=== PATIENT | female | born 1985 | race Caucasian/White ===

== ENCOUNTER → 2018-01-03 08:22 | Outpatient (CLI) | payer BC, SELFPAY ==
[2018-01-11 08:47] LABS: HPV Reflexed? NOT INDICATED
== END ==
PROVIDERS: Family Provider Family Medicine; PCP Family Medicine; Visit Provider Obstetrics & Gynecology
DX: Z12.4 Encounter for screening for malignant neoplasm of cervix (principal)
CPT/HCPCS: 88175; G0145

== ENCOUNTER → 2018-07-01 16:22 | Outpatient (CLI) | payer BC, SELFPAY ==
[2015-04-15 10:16] VITALS: BMI 29.0
[2018-07-02 00:26] LABS: Chlamydia Trachomatis by PCR Negative (Negative); Neisserai gonorrhoeae by PCR Negative (Negative); Probe Check PASS; Sample Adequacy Control PASS; Specimen Processing Control PASS
== END ==
PROVIDERS: Visit Provider Obstetrics & Gynecology
DX: Z11.3 Encounter for screening for infections with a predominantly sexual mode of transmission (principal)
CPT/HCPCS: 87491; 87591

== ENCOUNTER → 2018-07-12 16:08 | Outpatient (CLI) | payer BC, SELFPAY ==
[2015-04-15 10:16] VITALS: BMI 29.0
[2018-07-12 18:16] LABS: Absolute Lymphocyte Count 1.58 X10^3/ul (0.83-4.51); Absolute Neutrophil Count 6.9 X10^3/uL (2.0-7.7); Basophil# 0.03 X10^3/uL; Basophil% 0.3 % (0-1); Eosinophils% 1.1 % (0-5); Hematocrit 39.1 % (37-47); Hemoglobin 12.9 g/dl (12.0-15.0); Lymphocyte # 1.58 X10^3/ul (4.0); Lymphocyte % 17.1 % (19-41); Mean Corpuscular Hgb 27.4 pg (27.0-32.0); Mean Platelet Vol. 10.5 fl (6.2-12.0); Monocyte% 6.5 % (0-10); Neutrophil # 6.91 X10^3/uL (2.7-7.7); Neutrophil % 74.9 % (47-70); POSITIVE COUNT NO; POSITIVE DIFFERENTIAL NO; POSITIVE MORPHOLOGY NO; Platelet Count 273 K/mm3 (150-450); RBC Distribution Width CV 13.6 % (11.6-14.6); RBC Distribution Width SD 41.2 fl (35.1-43.9); Red Blood Count 4.71 M/mm3 (4.2-5.4); White Blood Count 9.2 K/mm3 (4.4-11.0)
[2018-07-12 18:17] LABS: Color, Urine Yellow (Yellow); Glucose, Dipstick Normal (Normal); Ketone-Dipstick Negative (Negative); Leukocyte Esterase-Dipstick Negative /ul (Negative); Nitrite-Dipstick Negative (Negative); Occult Blood-Urine Negative /ul (Negative); Protein-Dipstick Negative (Negative); Urine Bilirubin Dipstick Negative (Negative); Urine Clarity Clear (Clear); Urine Urobilinogen Normal (Normal)
[2018-07-12 18:34] LABS: Thyroid Stim Hormone (TSH) 0.43 uIU/mL (0.358-3.74)
[2018-07-12 19:14] LABS: HIV - WCH Non-Reactive (Nonreactive); Rubella IgG 94.3 IU/mL
[2018-07-14 14:42] LABS: HEPATITIS B SURFACE AG Negative (Negative); Hep C Antibodies <0.1 s/co ratio (0.0-0.9)
[2018-07-15 03:31] LABS: Prenatal RPR NONREACTIVE (NONREACTIVE)
== END ==
PROVIDERS: Visit Provider Obstetrics & Gynecology
DX: Z34.81 Encounter for supervision of other normal pregnancy, first trimester (principal)
CPT/HCPCS: 36415; 81002; 84443; 85025; 86703; 86762; 86803; 87340

== ENCOUNTER → 2018-11-01 | Outpatient (CLI) | payer BC, SELFPAY ==
[2018-11-01 09:30] LABS: Hematocrit 36.8 % (37-47); Hemoglobin 12.2 g/dl (12.0-15.0); Mean Corp Hgb Conc 33.2 g/gl (32-36); Mean Corpuscular Hgb 28.2 pg (27.0-32.0); Mean Platelet Vol. 10.4 fl (6.2-12.0); Platelet Count 213 K/mm3 (150-450); RBC Distribution Width CV 14.3 % (11.6-14.6); RBC Distribution Width SD 44.6 fl (35.1-43.9); Red Blood Count 4.33 M/mm3 (4.2-5.4); Scan Indicated on CBC? Y/N NO; White Blood Count 8.5 K/mm3 (4.4-11.0)
[2018-11-01 11:32] LABS: Glucose Challenge Gest 1H 50g 104 mg/dL (70-140)
== END | disposition home or self-care (01) ==
LOC: WOBLAB 08:56
PROVIDERS: Visit Provider Obstetrics & Gynecology
DX: Z34.82 Encounter for supervision of other normal pregnancy, second trimester (principal)
CPT/HCPCS: 36415; 82950; 85027

== ENCOUNTER → 2018-12-26 | Outpatient (CLI) | payer BC, SELFPAY | END | disposition home or self-care (01) | PROVIDERS: Referring Provider Obstetrics & Gynecology; Visit Provider Obstetrics & Gynecology | DX: Z36.85 Encounter for antenatal screening for Streptococcus B (principal) | CPT/HCPCS: 87077; 87081 ==

== ENCOUNTER 2019-02-07 03:30 | Inpatient (IN) | payer BC, SELFPAY ==
[2019-02-07] MEDS: Lactated Ringers 500 ML 999 ML IV (04:05)
[2019-02-07 04:31] LABS: Hematocrit 39.8 % (37-47); Hemoglobin 13.6 g/dL (12.0-15.0); Mean Corp Hgb Conc 34.2 g/dL (32-36); Mean Corpuscular Hgb 28.8 pg (27.0-32.0); Mean Corpuscular Volume 84.3 fL (81-99); Mean Platelet Vol. 11.7 fl (6.2-12.0); Platelet Count 179 K/mm3 (150-450); RBC Distribution Width CV 13.6 % (11.6-14.6); RBC Distribution Width SD 42.1 fl (35.1-43.9); Red Blood Count 4.72 M/mm3 (4.2-5.4); White Blood Count 9.9 K/mm3 (4.4-11.0)
[2019-02-07 04:44] VITALS: BMI 29.5
[2019-02-07] MEDS: fentaNYL-bupivacaine (epidural) 100 ML BAG EPIDURAL ×2 (04:56→09:29)
[2019-02-07] MEDS: Lactated Ringers 1,000 ML 50 ML IV ×2 (05:09→10:27)
--- NOTE | 2019-02-07 07:03 | PCM.HPOB.BLA ---
History and Physical Date of Admission: 02/07/19 OB HISTORY AND PHYSICAL EXAMINATION History of this : 33 yo female Ab0 with EDC 01/29/2019 by 11 weeks 2 days Ultrasound, presents to Labor and Delivery at 41 2/7 wk on date of her scheduled induction for postdates, with cc of [facility]. care remarkable for 1.) H/O headaches 2.) Eczema, feet Pertinent Past Medical History: Negative Allergies: No Known Drug Allergies Medications: During - Finacea 15 % topical gel; Women's + DHA 28 mg-975 mcg- 200 mg combo pack [id number]-nwbpmggzzaivf-bufckmaj 50 mg-325 mg-40 mg tablet; magnesium 200 mg tablet; promethazine 25 mg tablet Review of Systems: Contractions Non-contributory PHYSICAL EXAMINATION General Appearence: 33 yo female now comfortable with epidural Vital Signs: AF, VSS Heart: RRR without rubs or gallops Lungs: CTA x 2 Breasts: deferred Abdomen: gravid Pelvis: adeqate Cervix: 5 cm , now 6-7 cm/80/-2 Presentation: cephalic Size: 9# 9 oz by sono 02/06/19 Movement: present Heart: 130-150s avg variability. ? occasional late, Accels to 170-180 Avg variability. UCs irregular q 4-6 + min Impression /Plan: Intrauterine . 41 2/7 wk spontaneous labor. Admitted. Epidural placed. EFW 9# 9 oz Oligo 02/06/19 History and Physical generated at time of exam. Se Holland MD 02/07/19 0711
--- NOTE | 2019-02-07 08:37 | PCM.PN.BLA ---
Progress Note LABOR PROGRESS NOTE Comfortable w/ epidural AVSS EFM reassuring, category I tracing Irregular UCs CX: 6/stretchy distensible. 90% / -2 A/P: 41 2/7 wk early labor. AROM Oligo LGA 9# 9 oz. Consider Pitocin augmentation.
[2019-02-07] MEDS: Oxytocin 30 units/NS 500 ml 30 UNITS/500 ML IV.SOLN 334 UNITS IV (12:08)
--- NOTE | 2019-02-07 12:32 | DCINST_ITS ---
Discharge Diet: No Restrictions Discharge Activity: May Shower, May Take a Tub Bath Return to work on:: 03/27/19 May resume sexual activity in: 4-6 weeks Additional Activity Instructions:: Nothing in the vagina for 4-6 weeks. You may return to work/school in 6 weeks. Additional Instructions: If you experience any of the following, contact your healthcare provider. * Bleeding that soaks a pad every hour for 2 hours * Fever 100.4 or higher * Unrelieved abdominal pain * Problems urinating (including inability to urinate or burning while urinating). * Visual changes * Severe headache * Flu-like symptoms * Pain or redness in one of both of your breasts * Pain, warmth, tenderness or swelling in your legs, especially the calf area * Frequent nausea and vomiting * Symptoms of depression or anxiety If you experience any of the following, call 911 or go to the nearest Emergency Room. * Chest pain * Problems breathing * Seizure activity * Partial or complete paralysis of a body part, slurred speech, weakness or drooping of the face, or a sudden inability to walk or hold your balance Allergies/Adverse Reactions: Allergies No Known Allergies Allergy (Verified 02/07/19 04:44) Medications to take at Discharge Vits [Prenatabs FA] 1 tablet PO DAILY 04/15/15 Please Follow Up With: Franca Holland MD - [phone] When: Call to make an appointment with your doctor in 6 weeks. Test Results: Test results from this visit will be discussed in further detail at your follow- up appointment, if applicable. Proposed Discharge Date: 02/08/19
--- NOTE | 2019-02-07 12:32 | PCM.DCVAG ---
Discharge Diet: No Restrictions Discharge Activity: May Shower, May Take a Tub Bath Return to work on:: 03/27/19 May resume sexual activity in: 4-6 weeks Additional Activity Instructions:: Nothing in the vagina for 4-6 weeks. You may return to work/school in 6 weeks. Additional Instructions: If you experience any of the following, contact your healthcare provider. Bleeding that soaks a pad every hour for 2 hours Fever 100.4 or higher Unrelieved abdominal pain Problems urinating (including inability to urinate or burning while urinating). Visual changes Severe headache Flu-like symptoms Pain or redness in one of both of your breasts Pain, warmth, tenderness or swelling in your legs, especially the calf area Frequent nausea and vomiting Symptoms of depression or anxiety If you experience any of the following, call 911 or go to the nearest Emergency Room. Chest pain Problems breathing Seizure activity Partial or complete paralysis of a body part, slurred speech, weakness or drooping of the face, or a sudden inability to walk or hold your balance Allergies/Adverse Reactions: Allergies No Known Allergies Allergy (Verified 02/07/19 04:44) Medications to take at Discharge Vits [Prenatabs FA] 1 tablet PO DAILY 04/15/15 Please Follow Up With: Franca Holland MD - [phone] When: Call to make an appointment with your doctor in 6 weeks. Test Results: Test results from this visit will be discussed in further detail at your follow-up appointment, if applicable. Proposed Discharge Date: 02/08/19
[2019-02-07] MEDS: Oxytocin 30 units/NS 500 ml 30 UNITS/500 ML IV.SOLN 167 UNITS IV (12:38)
--- NOTE | 2019-02-07 12:40 | OP.PCM_ITS ---
Vaginal Delivery Maternal Presentation: Active Labor 41 2/7 wk labor. (scheduled for induction, presented in labor) Oligohydramnios LGA 9# 9 oz EFW Amniotic Membrane Rupture Type: Artificial Amniotic Fluid Description: Clear Final FELICIA: 01/29/19 Final FELICIA Source: US <20 weeks Gestational age: 41 Weeks and 2 Days Date of Procedure: 02/07/19 Pre-Operative Diagnosis: vaginal delivery Post-Operative Diagnosis: same Type of Anesthesia: Epidural Description of Procedure: of a avery viable female over intact perineum. Rapid progress, epidural not fully effective due to rapid transition. Head delivered ANTHONY. OP and nares bulb suctioned on perineum. No nuchal cord, Shoulders delivery easily. to maternal abdomen with spont cry. Weight pending. Ap PP exam; no lacerations noted Placenta delivered by spont expulsion, expression 3 V cord, normal appearing, in tact with trailing membranes. Pt and tolerated delivery well. To recovery, stable condition Ray Sam counts correct times two. Presentation: Vertex, ANTHONY Placental Delivery Description: Spontaneous, Expressed Placenta Disposition: [facility] Cord Vessel Description: 3 Vessels Cord Entanglement: None Estimated Blood Loss: 150 Infant A gender: Female (1 minute): 8 (5 minute): 9 Episiotomy Description: None Laceration: None Medications given after delivery: IV Pitocin Complications: None
[2019-02-07 17:00] VITALS: BP 112/67; PULSE 87; RESP 16; TEMP 36.4
[2019-02-07 19:35] VITALS: BP 129/74; PULSE 88; RESP 16; TEMP 36.6
[2019-02-07 23:52] VITALS: BP 115/65; PULSE 82; RESP 16; TEMP 36.4; O2SAT 97
[2019-02-08 04:20] VITALS: BP 106/65; PULSE 72; RESP 14; TEMP 36.3; O2SAT 97
--- NOTE | 2019-02-08 08:06 | PCM.PN.OB ---
Subjective: PPD#1 Bresat feeding well. Some inc cramping wtih nursing. No concerns voiced Baby wt 9# 7 oz. Objective: Sitting up in bed nursing baby - Physical Exam General: Alert, Oriented x3, Cooperative, No apparent distress HEENT: Atraumatic, PERRLA, EOMI Neck: Supple Psych/Mental Status: Normal Affect Vital Signs Temp Pulse Resp BP Pulse Ox 97.3 F L 72 14 106/65 97 02/08/19 04:20 02/08/19 04:20 02/08/19 04:20 02/08/19 04:20 02/08/19 04:20 Oxygen Delivery Method Room Air Weight: 77.9 kg Body Mass Index (BMI) 29.5 Intake and Output for Last 24 Hours 02/06/19 02/07/19 02/08/19 23:59 23:59 23:59 Intake Total 2872 / 2872 Output Total 3200 / 3200 Balance -328 / -328 Medical Necessity - Tobacco Use Smoking Status: Never smoker Assessment/Plan PPD#1 vaginal delivery Stable pp. Continue care
[2019-02-08 08:26] VITALS: BP 118/70; PULSE 86; RESP 18; TEMP 36.6
[2019-02-08 13:04] VITALS: BP 121/68; PULSE 73; RESP 16; TEMP 36.9; O2SAT 99
[2019-02-08 16:01] VITALS: BP 110/61; PULSE 88; RESP 16; TEMP 36.1
[2019-02-08 21:50] VITALS: BP 110/55; PULSE 72; RESP 16; TEMP 36.5; O2SAT 95
[2019-02-09 02:15] VITALS: BP 114/50; PULSE 53; RESP 15; TEMP 36.2; O2SAT 95
--- NOTE | 2019-02-09 07:43 | PCM.PN.OB ---
Subjective: PPD#2 Doing well. Nursing. Cluster feeding during night and passed a small clot, bleeding is very light now. No concerns voiced Minimal pain. - Physical Exam General: Alert, Oriented x3, Cooperative, No apparent distress HEENT: Atraumatic, EOMI Neck: Supple Abdomen: Soft - Fundus firm NT approx 2 cm inferior to umbilicus Neurological: Cranial nerves II-XII grossly intact Psych/Mental Status: Normal Affect Vital Signs Temp Pulse Resp BP Pulse Ox 97.1 F L 53 L 15 114/50 L 95 02/09/19 02:15 02/09/19 02:15 02/09/19 02:15 02/09/19 02:15 02/09/19 02:15 Oxygen Delivery Method Room Air Weight: 77.9 kg Body Mass Index (BMI) 29.5 Intake and Output for Last 24 Hours 02/07/19 02/08/19 02/09/19 23:59 23:59 23:59 Intake Total 2872 / 2872 Output Total 3200 / 3200 Balance -328 / -328 Medical Necessity - Tobacco Use Smoking Status: Never smoker Assessment/Plan PPD#2 vaginal delivery Stable pp. Dischg home today. RTO in 6 wk for pp check.
[2019-02-09 08:43] VITALS: BP 118/64; PULSE 95; RESP 18; TEMP 36.6; O2SAT 97
[2019-02-09] MEDS: Diphth,Pertuss(Acell),Tet Vac 0.5 ML Vial IM (11:08)
[2019-02-09 12:31] VITALS: BP 104/72; PULSE 87; RESP 18; TEMP 36.3; O2SAT 100
== END 2019-02-09 13:10 | disposition home or self-care (01) | DRG 806 ==
PROVIDERS: Obstetrics & Gynecology; Admitting Provider Obstetrics & Gynecology; Referring Provider Obstetrics & Gynecology; Visit Provider Obstetrics & Gynecology
DX: O48.0 Post-term pregnancy (principal); O41.03X0 Oligohydramnios, third trimester, not applicable or unspecified; Z37.0 Single live birth; Z3A.41 41 weeks gestation of pregnancy; O36.60X0 Maternal care for excessive fetal growth, unspecified trimester, not applicable or unspecified; O62.3 Precipitate labor
CPT/HCPCS: 59025; 59050; 85027; 86850; 86900; 90715; 99218; J7120; G0378

== ENCOUNTER → 2023-09-13 | Outpatient (CLI) | payer BC, SELFPAY ==
[2023-09-16 14:09] LABS: HPV APTIMA, High Risk Negative (Negative)
== END | disposition home or self-care (01) ==
LOC: LABSPEC 11:14
PROVIDERS: PCP Family Medicine; Referring Provider Obstetrics & Gynecology; Visit Provider Obstetrics & Gynecology
DX: Z12.4 Encounter for screening for malignant neoplasm of cervix (principal)
CPT/HCPCS: 87624; 88175; G0145